=== PATIENT | female | born 1925 ===

== ENCOUNTER 2016-10-01 01:40 | Emergency (ER) | payer MEDICARE, MEDICAID ==
[2016-10-01 02:23] VITALS: PULSE 0
--- NOTE | 2016-10-01 03:00 | ED PDOC ---
HPI: Cardiac Arrest Time Seen by Provider: 10/01/16 02:00 Chief Complaint (Nursing): Cardiac Arrest Chief Complaint (Provider): cardiac arrest History Per: EMS Reason For Code Blue: Full Arrest Circumstances: Brought To ED By EMS CPR Initiated Prior To MD Arrival?: Yes Treatment Initiated Prior To MD Arrival: CPR, Intubation, ACLS Medication Initiation Medications Given Prior To MD Arrival: Epinephrine Additional Complaint(s): 89yo female presents to the ED via EMS in cardiac arrest. EMS reports they arrived at [facility] at about 0105 and patient was vomiting coffee ground emesis and had no pulse. EMS initiated ACLS protocol, intubated patient, and started compressions. Patient transiently got pulse back for a few seconds and then lost it again around 0115. EMS gave 5 epis and pulled tube because patient' s neck was swelling. Hx limited due to patient being in cardiac arrest. Past Medical History Reviewed: Historical Data, Nursing Documentation, Vital Signs, Unable To Obtain (patient in cardiac arrest ) Vital Signs: Last Vital Signs Temp Pulse 0 L 10/01/16 02:15 Resp BP Pulse Ox - Medical History PMH: No Chronic Diseases - Family History Family History: States: Unknown Family Hx - Allergies Allergies/Adverse Reactions: Allergies Allergy/AdvReac Type Severity Reaction Status Date / Time Unobtainable Allergy Verified 10/01/16 02:23 Review of Systems Review Of Systems: ROS cannot be obtained secondary to pt's inabilty to answer questions. (patient in cardiac arrest) Physical Exam - Reviewed Nursing Documentation Reviewed: Yes Vital Signs Reviewed: Yes - Physical Exam Appears: Positive for: In Acute Distress (cardiac arrest . being bagged with ambu bag) Head Exam: Negative for: NORMAL INSPECTION (swollen face ) Skin: Positive for: Mottled (dried blood diffusely ) ENT: Positive for: Other (poor dentition, 1 tooth noted ) Neck: Negative for: Normal (swollen neck ) Cardiovascular/Chest: Positive for: Regular Rate, Rhythm Respiratory: Positive for: Decreased Breath Sounds Gastrointestinal/Abdominal: Positive for: Distended, Other (signs of GI bleeding ) Pelvic Exam: Positive for: Other (patient in diaper ) Neurologic/Psych: Negative for: Alert (unresponsive ) - Critical Care Total Time (In Min): 45 Medical Decision Making Medical Decision Makin: Impression: cardiac arrest Plan: Gave multiple rounds of epi, bicarb, and calcium. No return of spontaneous circulation. Patient intubated using kaleidoscope and was bagged. Patient at 0206. Informed daughter, Brionna Brewer, who is on her way to ED. 0310: Patient released from medical practice administrator (Xavier). 0500: Family here in ED at this time. Provider spoke with family including daughter who was contacted on the phone earlier. daughter came to ER and appreciative. they dont want autopsy NH made aware Scribe Attestation: Documented by Niko Solomon acting as a scribe for Damion Machuca MD. Provider Scribe Attestation: All medical record entries made by the Scribe were at my direction and personally dictated by me. I have reviewed the chart and agree that the record accurately reflects my personal performance of the history, physical exam, medical decision making, and the department course for this patient. I have also personally directed, reviewed, and agree with the discharge instructions and disposition. Disposition - Clinical Impression Clinical Impression: Cardiac arrest - Patient ED Disposition Is Patient to be Admitted: No - Disposition Referrals: Barbara Ch MD [Primary Care Provider] - Disposition Time: 02:06 Condition: Endotracheal Intubation - Endotracheal Intubation Intubated With ETT Size: 7.5 (intubation during code) Blade Type Used: Curved Indication: Respiratory Failure Intubated: Orally Pre-Intubation Airway Assessment: Appears To Have A difficult Airway Post-Intubation Assessment: ETT Secured AT (cm): (21), Breath Sounds Equal Bilat , Color Change W/End Tidal CO2 Detector
[2016-10-01] MEDS ORDERED: Dextrose 50% SYRINGE Inj (50 ml) ONE (04:24)
[2016-10-01] MEDS ORDERED: Sodium Bicarbonate 7.5% (0.9 MEQ/ML) 50ML INJ IV ONE (05:30)
[2016-10-01] MEDS ORDERED: Calcium Gluconate 4.65 mEq/10 ml Inj IV ONE (05:30)
== END 2016-10-01 06:42 ==
LOC: EDBD 01:40 → H.ER 01:40
DX: I46.9 Cardiac arrest, cause unspecified (principal)
CPT/HCPCS: 92950; 99285; J0171; J0610